=== PATIENT | male | born 1970 | race Two or more races ===

== ENCOUNTER 2021-09-22 00:25 | Emergency (ER) | payer SELFPAY ==
[~2021-09-22] VITALS: Ht 157.5 cm; Wt 72.0 kg
--- NOTE | 2021-09-22 00:28 | PHYS DOC ---
Past Medical History Past Medical History: No Pertinent History Smoking Status: Unknown if ever smoked Drug Use: Marijuana General Adult EDM: Chief Complaint: DRUG ABUSE HPI: HPI: Patient is a 51 year old male brought in by EMS for evaluation after ingesting THC edibles that he bought off the street. Reportedly, the patient was caught by police buying the illicit drugs, and he became upset, stated that he was sick and wanted to go to the hospital. EMS reports that he refused to cooperate with ambulating, was reportedly verbally abusive in route. On arrival, the patient reports that he wants to sleep and wants to be left alone. The patient reports that "I do not feel right." He reports no chest pain or dyspnea. He denies a bdominal pain. He denies nausea or vomiting symptoms. He denies ingestion of other drugs, denies ingestion of alcohol. Review of Systems: Review of Systems: Constitutional: Denies fever or chills. [] HENT: Denies nasal congestion or sore throat. [] Respiratory: Denies cough or shortness of breath. [] Cardiovascular: Denies chest pain or edema. [] GI: Denies abdominal pain, nausea, vomiting : Denies urinary symptoms or incontinence Musculoskeletal: Denies back pain or joint pain. [] Integument: Denies rash. [] Neurologic: Denies headache, focal weakness or sensory changes. [] Psychiatric: Anxiety, drug ingestion, denies SI or HI Heart Score: C/O Chest Pain: No Risk Factors: Risk Factors: DM, Current or recent (<one month) smoker, HTN, HLP, family history of CAD, obesity. Risk Scores: Score 0 - 3: 2.5% MACE over next 6 weeks - Discharge Home Score 4 - 6: 20.3% MACE over next 6 weeks - Admit for Clinical Observation Score 7 - 10: 72.7% MACE over next 6 weeks - Early Invasive Strategies Physical Exam: PE: Constitutional: Well developed, well nourished, no acute distress, non-toxic appearance. [] HENT: Normocephalic, atraumatic, oropharynx is patent and clear. TMs are clear bilaterally. Mucous members are moist Eyes: PERRL, EOMI, conjunctiva normal, no discharge. No scleral icterus. No nystagmus. Neck: Normal range of motion, no tenderness, supple, no stridor. No meningismus. Cardiovascular:Heart rate regular rhythm, was 2 radial pulses bilaterally Lungs & Thorax: Bilateral breath sounds clear to auscultation, no rales, rhonchi or wheezes. Abdomen: Abdomen is soft, nondistended, nontender to palpation. Skin: Warm, dry, no erythema, no rash. [] Back: No tenderness, no CVA tenderness. [] Extremities: No tenderness, no cyanosis, no clubbing, ROM intact, no edema. No calf tenderness. No limb deformity. Neurologic: He is somewhat sleepy, awakens easily, opens eyes to voice, localizes to pain, gag reflex intact, moves all 4 extremities equally, 5 out of 5 motor strength all 4 extremities. He is able to ambulate, though he frequently refuses to do so. 2/4 DTR bilateral lower extremities. Sensation is grossly intact. Beach is somewhat slurred. Psychologic: Bizarre, flat affect, relatively uncooperative. EKG: EKG: [] Radiology/Procedures: Radiology/Procedures: [] Course & Med Decision Making: Course & Med Decision Making The patient has no complaints. He is demanding to stay here in sleep. There is no physical evidence of head or body trauma. He does appear to be somewhat intoxicated. He reports that he has someone he can call to take him home. He will be discharged from the ER. Is recommend that he stop use of THC or illicit drugs. Return precautions are given. Nancy Disclaimer: Nancy Disclaimer: This electronic medical record was generated, in whole or in part, using a voice recognition dictation system. Departure Departure Impression: Primary Impression: Tetrahydrocannabinol (THC) use disorder, mild, abuse Disposition: 01 HOME / SELF CARE / HOMELESS Condition: STABLE Patient Instructions: Drug Abuse and Addiction-[facility], Drug Abuse, FAQs Additional Instructions: Return to the ER if you have an acute emergency medical problem, if you are acutely injured, if you severe chest pain, shortness of breath, uncontrolled vomiting, severe abdominal pain or for any other concerns. Stop using drugs, I believe your symptoms are related to your ingestion of street edibles/THC. Contact your primary care doctor for further evaluation and treatment. EMY PALACIOS DO Sep 22, 2021 00:28
[2021-09-22 00:32] VITALS: BP 120/56
[2021-09-22] MEDS ORDERED: ONDA4TAB12 PO (05:25)
== END 2021-09-22 01:00 | disposition home or self-care (01) ==
LOC: ER 00:25
DX: F12.10 Cannabis abuse, uncomplicated (principal)
CPT/HCPCS: 99283

== ENCOUNTER 2021-09-22 01:45 | Emergency (ER) | payer SELFPAY ==
[~2021-09-22] VITALS: Ht 162.6 cm; Wt 72.0 kg
--- NOTE | 2021-09-22 01:51 | PHYS DOC ---
Past Medical History Past Surgical History: No Surgical History Smoking Status: Current Every Day Smoker Alcohol Use: Heavy General Adult EDM: Chief Complaint: NAUSEA/VOMITING/DIARRHEA HPI: HPI: Patient is a 51 year old male who had seen earlier in the shift, he was discharged after being seen for evaluation after ingesting THC edibles. He obtained this edible from someone on the street. The patient had no specific complaints other than wanting to be left alone to sleep, he had been discharged. He refused to leave the hospital, refused to leave the waiting room. I went back in the waiting room and spoke with the patient, he told me that he did not think I was very smart. He was told that he would be arrested for trespassing, escorted off property by police. The patient was witnessed to be ambulating intermittently, but he refused to ambulate when police arrived. The patient proceeded to vomit clear fluids and what appears to be left over food products, no hematemesis. He requested to be seen again. He was brought back into the ED. IV, IV Zofran and IV fluids were given. After vomiting in the lobby, he reported no further nausea. He continues to deny chest pain, abdominal pain, dyspnea. He denies dizziness. Review of Systems: Review of Systems: Constitutional: Denies fever or chills. [] Eyes: Denies vision loss HENT: Denies nasal congestion or sore throat. [] Respiratory: Denies cough or shortness of breath. [] Cardiovascular: Denies chest pain or edema. [] GI: Denies abdominal pain. Reports nausea and vomiting, witnessed vomiting episodes. : Denies urinary symptoms. Musculoskeletal: Denies back pain or joint pain. [] Integument: Denies rash. [] Neurologic: Denies headache, syncope, focal motor weakness, denies numbness or tingling. Endocrine: Denies polyuria or polydipsia. [] Lymphatic: Denies swollen glands. [] Psychiatric: Anxiety, agitation, confusion, denies SI or HI. Heart Score: C/O Chest Pain: No Risk Factors: Risk Factors: DM, Current or recent (<one month) smoker, HTN, HLP, family history of CAD, obesity. Risk Scores: Score 0 - 3: 2.5% MACE over next 6 weeks - Discharge Home Score 4 - 6: 20.3% MACE over next 6 weeks - Admit for Clinical Observation Score 7 - 10: 72.7% MACE over next 6 weeks - Early Invasive Strategies Allergies: Allergies: Allergies Coded Allergies Type Severity Reaction Last Updated Verified No Known Drug Allergies 09/22/21 No Physical Exam: PE: Constitutional: Well developed, well nourished, no acute distress, non-toxic ap pearance. He does appear to be intoxicated HENT: Normocephalic, atraumatic, oropharynx is patent and clear, mucous members are moist. External ears are normal bilaterally. Nares are patent clear without rhinorrhea epistaxis Eyes: PERRL, EOMI, conjunctiva normal, no discharge. No nystagmus. No scleral icterus. Neck: Normal range of motion, no tenderness, supple, no stridor. Midline tenderness or step-offs. No meningismus. Cardiovascular:Heart rate regular rhythm, was 2 radial and +2 posterior tibial pulses bilaterally. Lungs & Thorax: Bilateral breath sounds clear to auscultation [] Abdomen: Diminished soft, nondistended, nontender to palpation. No palpable masses organomegaly. No CVA tenderness. Skin: Warm, dry, no erythema, no rash. No jaundice. Back: No tenderness, no CVA tenderness. [] Extremities: No tenderness, no cyanosis, no clubbing, ROM intact, no edema. No calf tenderness. Neurologic: He is drowsy, appears intoxicated, he is awake, spontaneous eye opening, localization to pain, no facial asymmetry, gag reflex intact, briskly moves all 4 extremities equally, gross motor unction is normal, sensation grossly intact, speech is slightly slurred. Psychologic: Affect is bizarre. Denies SI or HI. EKG: EKG: [] Radiology/Procedures: Radiology/Procedures: [] Course & Med Decision Making: Course & Med Decision Making Pertinent Labs and Imaging studies reviewed. (See chart for details) Patient is given IV fluids, IV Zofran. No further vomiting has occurred in the ED. He has been sleeping for several hours. He is much more awake and alert now. He repeatedly asked me to tell him how much drugs he consumed. I told him that I am not sure, as THC edibles are not regulated, especially those obtained from the street. I recommend that he stop using drugs. He has no physical complaints. Still denies chest pain or dyspnea. Denies nausea. Denies abdominal pain. He called his son to come pick him up. There is no indication for further invasive exams, imaging or admission at this time. Return precautions are given. Nancy Disclaimer: Nancy Disclaimer: This electronic medical record was generated, in whole or in part, using a voice recognition dictation system. Departure Departure Impression: Primary Impression: Tetrahydrocannabinol (THC) use disorder, mild, abuse Additional Impression: Nausea and vomiting Qualified Codes: R11.2 - Nausea with vomiting, unspecified Disposition: HOME / SELF CARE / HOMELESS Condition: STABLE Referrals: NO PCP (PCP) Patient Instructions: Drug Abuse, FAQs, Nausea and Vomiting Additional Instructions: Your symptoms are related to you consuming edible THC or marijuana. Please stop doing this. Return to the ER for chest pain, shortness of breath, severe abdominal pain, uncontrolled vomiting, dehydration or other concerns. Make sure you stay hydrated, eat a bland diet, get plenty of rest today. Follow-up with your primary care physician. Scripts Ondansetron (ONDANSETRON ODT) 4 Mg Tab.rapdis 1 TAB PO PRN Q6-8HRS for nasuea or vomiting, #20 TAB Prov: EMY PALACIOS DO 09/22/21 EMY PALACIOS DO Sep 22, 2021 01:51
[2021-09-22] MEDS ORDERED: ONDANSETRON ODT 4 MG TAB.RAPDIS. PO ONE (02:00)
[2021-09-22] MEDS ORDERED: IV NORMAL SALINE 1000ML BAG 1,000 ML IV ONE (02:00)
[2021-09-22 02:06] LABS: BASO # 0.1 x10^3/uL (0.0-0.2); BASO % 1 % (0-3); EOS # 0.2 x10^3/uL (0.0-0.7); EOS % 2 % (0-3); HEMATOCRIT 41.6 % (39.0-53.0); HEMOGLOBIN 14.1 g/dL (13.0-17.5); LYMPH # 2.3 x10^3/uL (1.0-4.8); LYMPH % 20 % (24-48); MEAN CORPUSCULAR HEMOGLOBIN 29 pg (25-35); MEAN CORPUSCULAR HGB CONC 34 g/dL (31-37); MEAN CORPUSCULAR VOLUME 86 fL (79-100); MONO # 0.9 x10^3/uL (0.0-1.1); MONO % 8 % (0-9); NEUT # 7.8 x10^3/uL (1.8-7.7); NEUT % 69 % (31-73); PLATELET COUNT 180 x10^3/uL (140-400); RED BLOOD COUNT 4.86 x10^6/uL (4.30-5.70); RED CELL DISTRIBUTION WIDTH 13.6 % (11.5-14.5); WHITE BLOOD COUNT 11.3 x10^3/uL (4.0-11.0)
[2021-09-22 02:15] LABS: CALCIUM 8.9 mg/dL (8.5-10.1); CREATININE 1.5 mg/dL (0.7-1.3); GFR 49.3; POTASSIUM 3.5 mmol/L (3.5-5.1)
[2021-09-22] MEDS ORDERED: ONDANSETRON PF 4 MG/2 ML VIAL. IVP ONE (02:15)
[2021-09-22 02:20] LABS: ALBUMIN 3.8 g/dL (3.4-5.0); TOTAL BILIRUBIN 0.2 mg/dL (0.2-1.0); TOTAL PROTEIN 7.5 g/dL (6.4-8.2)
[2021-09-22 03:38] LABS: BILIRUBIN,URINE NEGATIVE (NEG); CLARITY,URINE CLEAR; COLOR,URINE YELLOW; NITRITE,URINE NEGATIVE (NEG); PH,URINE 5.5 (<5.0-8.0); PROTEIN,URINE 30 mg/dL (NEG-TRACE); UROBILINOGEN,URINE 0.2 mg/dL (0.2 mg/dL)
[2021-09-22 03:40] LABS: BACTERIA,URINE 0 /HPF (0-FEW); RBC,URINE 0 /HPF (0-2); WBC,URINE OCC /HPF (0-4)
[2021-09-22 03:41] LABS: HYALINE CASTS, URINE MODERATE /HPF
[2021-09-22 03:44] LABS: BARBITURATES NEG (NEG); BENZODIAZEPINES NEG (NEG); CANNABINOIDS POS (NEG); COCAINE NEG (NEG); METHADONE NEG (NEG); OPIATES NEG (NEG); PHENCYCLIDINE NEG (NEG)
[2021-09-22 03:45] LABS: AMPHETAMINE/METHAMPHETAMINE NEG (NEG)
[2021-09-22 04:49] VITALS: BP 119/62
[2021-09-22] MEDS ORDERED: ONDA4TAB12 PO (05:25)
== END 2021-09-22 05:35 | disposition home or self-care (01) ==
LOC: ER 01:45
DX: F12.10 Cannabis abuse, uncomplicated (principal); R11.2 Nausea with vomiting, unspecified; F17.200 Nicotine dependence, unspecified, uncomplicated; F10.20 Alcohol dependence, uncomplicated; Y90.9 Presence of alcohol in blood, level not specified
CPT/HCPCS: 36415; 80053; 80307; 81001; 83690; 85025; 96361; 96374; 99285; G0480; J2405; J7030